=== PATIENT | female | born 1975 | race Caucasian/White ===

== ENCOUNTER 2017-01-14 12:49 | Inpatient (IN) | payer OTHER ==
[2017-01-14] VITALS (8 sets, daily range): BP systolic 114–122; BP diastolic 69–84; PULSE 93–120; RESP 15–28; O2SAT 93–97
[~2017-01-14] VITALS: Ht 152.4 cm; Wt 74.4 kg
--- NOTE | 2017-01-14 13:06 | ED.REPORT ---
HPI-Dyspnea / Wheezing Date of Service Jan 14, 2017 ED Provider: Orlin Vyas MD A 41 year old female with a history of RA, mitral valve prolapse, borderline pulmonary hypertension and diet-controlled lupus is referred to the ED from Urgent Care complaining of chest pain. The pt was recently diagnosed with pneumonia and has been taking azithromycin for five days. She has not significantly improved and is still experiencing a dry cough and shortness of breath. The pt noticed intermittent "stabbing" right-sided chest and back pain this morning that has continued since, prompting her to seek medical care today. She denies hemoptysis or recent periods of immobilization. The pt has an appointment with her PCP scheduled for tomorrow. Nursing Notes Stated Complaint: TROUBLE BREATHING Chief Complaint: Respiratory Distress Nursing Notes Reviewed: Yes Allergies: Coded Allergies: hydroxychloroquine (Verified Allergy, Severe, migraines, 01/14/17) sulindac (Verified Allergy, Severe, liver toxicity, 01/14/17) amoxicillin (Verified Allergy, Intermediate, rash,hives, 01/14/17) etanercept (Verified Allergy, Intermediate, IV site reaction, big red spot , 01/14/17) Scheduled Fexofenadine (Sarah Allergy) 180 Mg Tablet 180 MG PO QAM Norgestimate-Ethinyl Estradiol (Trinessa) 1 Each Tablet 1 TABLET PO QAM [place]-3/Dha/Epa/Fish Oil (Fish Oil 1,000 mg Softgel) 1 Each Capsule 1 CAPSULE PO QAM Scheduled PRN Albuterol HFA (Proair HFA) 8.5 Gm Hfa.aer.ad 2 PUFFS INHALATION Q4H PRN PRN For Shortness of Breath Cyclobenzaprine (Cyclobenzaprine) 10 Mg Tablet 5-10 MG PO Q8H PRN PRN Spasm Fluticasone Propionate (Fluticasone Propionate) 50 Mcg/Actuation [place].susp 1 SPRAY NS DAILY PRN PRN For Congestion General Time Seen by MD: 13:02 Chief Complaint Chest pain Hx Obtained From: Patient Arrived By: Walk-in Sudden in Onset?: No Symptom Duration: Since onset Recent Healthcare: Recent doctor visit Similar Sx Previous: No Past Medical History Past Medical History RA lupus, diet controlled mitral valve prolapse borderline pulmonary hypertension Past Surgical History none reported Smoking History Unknown if Ever Smoker Social History Other Social History: Good social support Ambulatory Status Independent Review of Systems Respiratory: Reports: Non-productive cough, Shortness of breath, Denies: Prod cough, bloody Cardiovascular: Reports: Chest pain Musculoskeletal: Reports: Back pain, Denies: Neck pain Skin: Denies Rash Complete sys rev & neg: except as marked. GI: Denies: Abdominal pain, Vomiting Physical Exam Initial Vital Signs Vital Signs (First) Date Time Temp Pulse Resp B/P Pulse Ox O2 Delivery O2 Flow Rate FiO2 01/14/17 12:52 37.2 120 18 114/76 95 Room Air Initial VS: Reviewed General/Constitutional: Awake, Alert Neck: Atraumatic, Supple, Full range of motion Respiratory / Chest: Breath sounds = bilat, No respiratory distress bibasilar crackles Cardiovascular: Heart rate NL, Regular rhythm, Heart sounds NL, No murmurs ENT: Atraumatic, Airway patent, Mucous membranes moist Abdomen: Atraumatic, Soft, Non-tender Back: Atraumatic, Full range of motion Lower Extremity / Pelvis / MS: Atraumatic, Full range of motion, No edema Skin: Atraumatic, Color NL, No rash, Warm, Dry Neurologic: Oriented X3, Speech NL, No motor deficits, No sensory deficits Head / Eyes: Atraumatic, Normocephalic, PERRL, EOMI Upper Extremity / MS: Atraumatic, Full range of motion Psychiatric: Affect NL, Mood NL Interpretation & Diagnostics Interpretation & Diagnostics: CT Angiogram Chest PE: IMPRESSION: 1. Right lower lobe pulmonary emboli. 2. Small hiatal hernia. 3. Bilateral atelectasis versus pneumonia. 4. Findings discussed with Dr. Jackson Rai on 01.14.17 at 1520 hrs. Dictated by: Brandon Mohr M.D. on 01/14/2017 at 15:19 Approved by: Brandon Mohr M.D. on 01/14/2017 at 15:22 Lab Results Interpretation Result Diagram: 01/15/17 0235 01/15/17 0235 Test 01/14/17 13:22 D-Dimer 3.88mg/L FEU (<0.50) Magnesium Level 2.1mg/dL (1.6-2.6) Total Bilirubin 0.6mg/dL (0.0-1.2) Aspartate Amino Transf (AST/SGOT) 21U/L (0-50) Alanine Aminotransferase (ALT/SGPT) 13U/L (0-32) Alkaline Phosphatase 78U/L (25-150) Pro-B-Type Natriuretic Peptide 115.7pg/mL (0-130) Total Protein 7.8g/dL (6.4-8.4) Albumin 2.4g/dL (3.4-5.0) Hold [place]ner Top Tube Received (Received) ECG Interpretation ECG Interpretation: sinus tachycardia with a rate of 103 T wave inversions in III and aVR no previous available for comparison Time: 13:17 Interpreted by: ED physician Re-Eval/Medical Decision Med Decision/Clinical Course 41-year-old female history of lupus reasoning with chest pain. CT angiogram confirms PE and pneumonia. PE risk factor lupus. Patient be admitted for IV antibiotics and heparin drip. Levaquin given. Source of Hx: Old records Re-Evaluation/Progress : Time of Eval: 15:39 Patient Status: Condition improved Re-Evaluation/Progress Note: Pt rechecked, who is stable. The diagnosis and plan for admission are discussed. The pt understands and agrees with the plan. All questions are addressed at this time. Consultation : Referral / Consult Name: Willem Leiva MD Consulted With: Hospitalist Call Returned at: 15:46 Lard Maker: Agrees with eval, Agrees with plan, Accepts admit Note: Spoke with Dr. Leiva, hospitalist, regarding pt's case. Dr. Leiva agrees with the evaluation and agrees to admit the pt. Counseled Regarding: Diagnosis, Lab results, Need for admission Discharge & Departure Impression: Primary Impression: Pneumonia Pneumonia type: due to unspecified organism Laterality: bilateral Lung location: unspecified part of lung Qualified Code: J18.9 - Pneumonia, unspecified organism Additional Impression: Pulmonary emboli Pulmonary embolism type: other Chronicity: acute Acute cor pulmonale presence: without acute cor pulmonale Qualified Code: I26.99 - Other pulmonary embolism without acute cor pulmonale Disposition: ADMITTED TO HOSPITAL Discharge Condition All VS Reviewed: Yes Condition: Stable Referrals: Damon Persaud DPM (PCP) Crit Care Except Billable Proc Time Spent: 75-104 minutes (90 minutes) Services Performed: Patient management by me, Time spent at bedside, Reviewing test results, Reviewing imaging, Discussing patient care, Documentation in record Scribe Attestation Portions of this note were transcribed by Flakito Melton. I, Dr. Vyas personally performed the history, physical exam and medical decision-making; I reviewed and confirmed the accuracy of the information in the transcribed note. copies to: Damon Persaud DPM, Ben M MD Jan 14, 2017 13:06 FLAKITO MELTON Jan 14, 2017 13:32 ECG Interpretation ECG Interpretation: sinus tachycardia with a rate of 103 T wave inversions in III and aVR no previous available for comparison Time: 13:17 Interpreted by: ED physician Re-Eval/Medical Decision Source of Hx: Old records Re-Evaluation/Progress : Time of Eval: 15:39 Patient Status: Condition improved Re-Evaluation/Progress Note: Pt rechecked, who is stable. The diagnosis and plan for admission are discussed. The pt understands and agrees with the plan. All questions are addressed at this time. Consultation : Referral / Consult Name: Willem Leiva MD Consulted With: Hospitalist Call Returned at: 15:46 Lard Maker: Agrees with eval, Agrees with plan, Accepts admit Note: Spoke with Dr. Leiva, hospitalist, regarding pt's case. Dr. Leiva agrees with the evaluation and agrees to admit the pt. Counseled Regarding: Diagnosis, Lab results, Need for admission Discharge & Departure Impression: Primary Impression: Pneumonia Pneumonia type: due to unspecified organism Laterality: bilateral Lung location: unspecified part of lung Qualified Code: J18.9 - Pneumonia, unspecified organism Additional Impression: Pulmonary emboli Pulmonary embolism type: other Chronicity: acute Acute cor pulmonale presence: without acute cor pulmonale Qualified Code: I26.99 - Other pulmonary embolism without acute cor pulmonale Disposition: ADMITTED TO HOSPITAL Discharge Condition All VS Reviewed: Yes Condition: Stable Referrals: Damon Persaud DPM (PCP) Crit Care Except Billable Proc Time Spent: 75-104 minutes (90 minutes) Services Performed: Patient management by me, Time spent at bedside, Reviewing test results, Reviewing imaging, Discussing patient care, Documentation in record Scribe Attestation Portions of this note were transcribed by Flakito Melton. I, Dr. Vyas personally performed the history, physical exam and medical decision-making; I reviewed and confirmed the accuracy of the information in the transcribed note. copies to: Damon Persaud DPM, Ben M MD Jan 14, 2017 13:06 FLAKITO MELTON Jan 14, 2017 13:32
[2017-01-14] MEDS ORDERED: 0.9% Sodium Chloride 1,000 ML IV ONE (13:10)
[2017-01-14 13:36] LABS: BASOPHILS % (AUTO) 0.3 % (0-3); EOSINOPHILS % (AUTO) 1.4 % (0-5); MONOCYTES % (AUTO) 13.1 % (4-12); NEUTROPHILS % (AUTO) 64.7 % (40-74); Platelet Count 278 bil/L (150-400)
[2017-01-14] MEDS ORDERED: levoFLOXacin Inj 750 MG in IV Premix 1 EACH IV ONE ×2 (13:45→15:25)
[2017-01-14 13:59] LABS: TROPONIN T < 0.010 ug/L (0.0-0.011)
[2017-01-14] MEDS ORDERED: Ondansetron 2 mg/mL 2 mL Inj ONE (14:54)
[2017-01-14] MEDS ORDERED: Ondansetron 2 mg/mL 2 mL Inj IVPUSH PRN ×2 (15:05→15:50)
--- NOTE | 2017-01-14 15:24 | DRSVH ---
PROCEDURE: CT ANGIO CHEST PULMONARY EMBOLISM ([id number]) INDICATIONS: chest pain elevated ddimer TECHNIQUE: After the administration of intravenous contrast, 2 mm thick sections acquired from the pulmonary api chuck to the posterior costophrenic angles. 3-dimensional maximum intensity projection (MIP) coronal a nd sagittal reformats were then acquired through the thorax. For radiation dose reduction, the follo wing was used: automated exposure control, adjustment of mA and/or kV according to patient size. COMPARISON: None. FINDINGS: Image quality: Excellent. Pulmonary arteries: Pulmonary arteries are normal in size. There are low density filling defects see n within the distal right main pulmonary artery, as well as the lobar, segmental, and subsegmental br anches of the right lower lobe pulmonary artery. Lungs and pleura: No pneumothorax. Small right pleural effusion. Moderate bibasilar airspace opacity, right greater than left. Scarring within the right upper lobe anteriorly. Central and peripheral air ways are patent. Mediastinum: Heart size is normal, without pericardial effusion. No mediastinal or hilar adenopathy . Thoracic aorta is normal in caliber and enhancement. Esophagus is normal in caliber. There is a s mall hiatal hernia. Bones and chest wall: No suspicious bony lesions. Ribs and thoracic spine appear intact throughout. Thyroid gland is within normal limits as visualized.. No axillary or supraclavicular adenopathy. Abdomen: Visualized upper abdominal solid organs appear normal in the early arterial phase of enhanc ement. IMPRESSION: 1. Right lower lobe pulmonary emboli. 2. Small hiatal hernia. 3. Bilateral atelectasis versus pneumonia. 4. Findings discussed with Dr. Jackson Rai on 01.14.17 at 1520 hrs. Dictated by: Brandon Mohr M.D. on 01/14/2017 at 15:19 Approved by: Brandon Mohr M.D. on 01/14/2017 at 15:22
[2017-01-14] MEDS ORDERED: Heparin 5,000 Unit/mL Inj IVPUSH ONE (15:25)
[2017-01-14] MEDS ORDERED: Heparin 25K Unit/500mL 0.45 NS 25,000 UNIT in IV Premix 1 EACH IV ONE (15:25)
[2017-01-14] MEDS ORDERED: Polyethylene Glycol (PEG) 17 Gm Powder PO PRN (15:50)
[2017-01-14] MEDS ORDERED: Heparin 25K Unit/500mL 0.45 NS 25,000 UNIT in IV Premix 1 EACH IV SCH (15:50)
[2017-01-14] MEDS ORDERED: Albuterol 2.5 mg/3 mL Inhalation Solution NEB PRN (15:50)
[2017-01-14] MEDS ORDERED: Alum-Mag Hydrox-Simeth 30 mL Suspension PO PRN (15:50)
[2017-01-14] MEDS ORDERED: NORG1TAB30 PO (15:53)
[2017-01-14] MEDS ORDERED: ALBU8.5H2 INHALATION (15:53)
[2017-01-14] MEDS ORDERED: OMEG-38 PO (15:53)
[2017-01-14] MEDS ORDERED: FEXO180T85 PO (15:53)
[2017-01-14] MEDS ORDERED: FLUT15.88 NS (15:53)
[2017-01-14] MEDS ORDERED: CYCL10TA9 PO (15:53)
[2017-01-14] MEDS ORDERED: Albuterol-Ipratropium 3 mL Inhalation Solution NEB SCH (16:00)
[2017-01-14] MEDS ORDERED: cefTRIAXone Inj 2,000 MG in Dextrose 5% Minibag Plus 50 ML IV SCH (16:55)
--- NOTE | 2017-01-14 17:09 | PCM.HPMED ---
Subjective Date of Service Jan 14, 2017 Primary Provider: Admitting Physician: Primary Care Physician: Esdras Clifford MD Attending Physician: Admit Status: From the Emergency Department, Full Admit, Admit to Yellow Team Chief Complaint: Shortness of breath and pleuritic chest pain. . History of Present Illness: Jo Lara is a 41-year-old female with a past medical history significant for mitral valve prolapse, borderline pulmonary hypertension, and diet-controlled mixed connective tissue disease who presented to [facility] emergency Department from the urgent care for shortness of breath and back pain 1 day. The patient was recently diagnosed with pneumonia and has been taking azithromycin for five days without significant improvement. She continues to experience a dry cough and shortness of breath. She has had associated headache, pleuritic chest pain, chills, fever, nausea, and vomiting. She experienced intermittent "stabbing" right-sided back pain prompting her to seek medical care today. She reports she has been immobile for 4-5 days due to her recent pneumonia. She denies vision changes, sore throat, chest pain, hemoptysis, dysuria, diarrhea, constipation, hematochezia, or melena. She has been on control pills since 17 years of age and is currently on TriNessa. She has no history of blood clots or family history of blood clots. She has no history of antiphospholipid syndrome. She has no other complaints. Vital signs in the ER: Temperature 37.2. Pulse 120. Respiratory rate 18. Blood pressure 114/76. Pulse ox 95% on room air. She received 1 L of NS, levofloxacin IV 750 mg 1, and was started on a PE heparin gtt in the ED. PCP is Dr. Esdras Clifford. . Review of Systems: A comprehensive review of systems was conducted with the patient and found to be negative except as above in the History of Present Illness. . Allergies Coded Allergies: hydroxychloroquine (Verified Allergy, Severe, migraines, 01/14/17) sulindac (Verified Allergy, Severe, liver toxicity, 01/14/17) amoxicillin (Verified Allergy, Intermediate, rash,hives, 01/14/17) etanercept (Verified Allergy, Intermediate, IV site reaction, big red spot , 01/14/17) Home Medications Albuterol 2 puffs every 4 hours as needed for shortness of breath Cyclobenzaprine 5-10 mg every 8 hours as needed for muscle spasm. Fexofenadine 180 mg daily. Fluticasone 1 spray intranasally daily as needed for allergies. TriNessa 1 daily. Fish oil 1000 mg daily. . PMH 1. Mixed connective tissue disorder, diet controlled. 2. "Borderline" pulmonary hypertension. 3. Mitral valve prolapse. 4. Seasonal allergies. . Surgical History 1. Cholecystectomy. . Family History Family history of heart disease on both sides of her family. Father who had an MO in his 50s and CABG 3 vessels who later of heart failure at 69 years old. Sister who is healthy. . Social History Hx Alcohol Use: Yes (social, 1-2 drinks 2x/month) Hx Substance Use: No Smoking Status: Never Smoker Additional Information The patient is x 2 years. She has no children. 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 . Exam Vital Signs Vital Sign - Last Date Time Temp Pulse Resp B/P Pulse Ox O2 Delivery O2 Flow Rate FiO2 01/14/17 13:53 95 27 121/69 96 01/14/17 12:52 37.2 Room Air Exam General: Young female lying in bed and in no acute distress, well-developed, well-nourished, appropriately interactive. HEENT: Normocephalic, atraumatic. External ears without defect. Pupils equal, round, and reactive to light. Anicteric sclerae, moist conjunctivae, and no lid lag. Oropharynx free of erythema and cobble stoning with moist mucosa. Neck: Supple with full range of motion. No jugular venous distension. No bruits. No lymphadenopathy or thyromegaly. Cardiovascular: Regular rhythm, tachycardic, without murmurs, rubs, or gallops appreciated Pulmonary: Bilateral lower lobe rales on auscultation, no wheeze. Normal respiratory effort with no use of accessory muscles. Abdomen: Soft, nontender, nondistended, bowel sounds present. No hepatosplenomegaly or masses appreciated. Extremities: No clubbing, cyanosis, or edema. No palpable cord or erythema of lower extremities. Skin: Normal temperature, turgor, and texture; no rash, ulcers, or subcutaneous nodules appreciated. Neurological: Cranial nerves grossly intact. Normal muscle strength, tone, and bulk. Reflexes, coordination, and sensory function within normal limits. No known gait impairment. Psychiatric: Normal mood and affect. Alert and oriented to person, place, and time. . Lab and Diagnostics Labs Item Value Date Time D-Dimer 3.88 mg/L FEU H 01/14/17 1322 Item Value Date Time Calcium Level 8.1 mg/dL L 01/14/17 1322 Total Bilirubin 0.6 mg/dL 01/14/17 1322 Aspartate Amino Transf (AST/SGOT) 21 U/L 01/14/17 1322 Alanine Aminotransferase (ALT/SGPT) 13 U/L 01/14/17 1322 Alkaline Phosphatase 78 U/L 01/14/17 1322 Troponin T < 0.010 ug/L 01/14/17 1322 Pro-B-Type Natriuretic Peptide 115.7 pg/mL 01/14/17 1322 Total Protein 7.8 g/dL 01/14/17 1322 Albumin 2.4 g/dL L 01/14/17 132 Result Diagram: 01/14/17 1322 01/14/17 132 X-Rays, CTs and MRIs CT ANGIO CHEST PULMONARY EMBOLISM IMPRESSION: 1. Right lower lobe pulmonary emboli. 2. Small hiatal hernia. 3. Bilateral atelectasis versus pneumonia. 4. Findings discussed with Dr. Jackson Rai on 01.14.17 at 1520 hrs. Dictated by: Brandon Mohr M.D. on 01/14/2017 at 15:19 . 12-lead ECG EKG: Sinus rhythm, tachycardic heart rate 103, normal axis, normal intervals, normal R-wave progression, T-wave inversion in lead III, no pathological Q waves or acute ischemic changes such as ST elevation or depression. Assessment & Plan Jo Lara is a 41-year-old female with a past medical history significant for mitral valve prolapse, borderline pulmonary hypertension, and diet-controlled mixed connective tissue disease who presented to [facility] emergency Department from the urgent care for shortness of breath and back pain 1 day. 1. Acute right lower lobe pulmonary emboli, present on admission. Active. - The patient presented with shortness of breath, pleuritic chest pain, and back pain 1 day. Afebrile and without leukocytosis. - D-dimer elevated at 3.88 which prompted CTA which demonstrated right lower lobe pulmonary emboli, as above. - Pulmonary emboli was provoked as patient was immobile, is on control, and has recent community-acquired pneumonia which has been shown to have a propensity for PE. - No family history of blood clots, previous history of blood clots, or antiphospholipid syndrome. - Continue PE heparin gtt. 2. Acute bilateral community-acquired pneumonia, present on admission. Active. - The patient failed azithromycin. - CTA demonstrated bilateral lower lobe pneumonia, as above. - Ordered complete pneumonia workup including: blood cultures 2, sputum Gram stain and culture if obtainable, respiratory viral PCR, and strep pneumoniae and legionella urine antigens. - Ordered MRSA screen. - Tylenol as needed for fever and pain. - Started IV fluid hydration with NS 100 mL/hr. - Ordered duo nebs every 4 hours as needed while awake and albuterol nebs every 2 hours as needed for shortness of breath. - Continue levofloxacin IV 750 mg daily. Chronic problems: 3. Seasonal allergies, present on admission. Stable. - Continue fexofenadine (or equivalent) 180 mg daily and fluticasone 1 spray intranasally daily as needed for allergies. 4. Mixed connective tissue disorder, present on admission. Stable. - Continue diet modification at patient's discretion. - Continue cyclobenzaprine 5 mg every 8 hours as needed for muscle spasm. 5. Borderline pulmonary hypertension, present on admission. Presumed stable. - The patient reports she is seen by a custom framing specialist in [place] Dr. Dodd who is monitoring her pulmonary hypertension without treatment thus far. PRN antiemetics: Zofran and Maalox. PRN bowel regimen: Senna and MiraLAX. PRN analgesics: Tylenol. Patient is admitted under inpatient status with expected length of stay greater than 2 midnights due to severity of presenting symptoms, risk of adverse event, and complexity of treatment plan. . Pain Evaluation: Adequate Pain Control VTE Prophylaxis: Other (PE heparin gtt) Resuscitation Status: CPR: Attempt Resuscitation Time spent 50 minutes Attending Statement The patient was seen and examined together with on January 14 and I agree with the history, exam findings, and plan as outlined in the note above. I did participate in all aspects of the services provided today, including documentation and the plan of care. The patient will be admitted and treated for pulmonary embolism with a heparin drip as well as community-acquired pneumonia with antibiotics. We will follow her clinically. At this point she shows no evidence of hemodynamic instability. We did clarify that she wants to be full resuscitation but that she would not want to be on a ventilator long-term if she had no hopes of improvement. copies to: Esdras Clifford MD; Oc Dodd MD, [place] M DO Jan 14, 2017 15:54 Willem Leiva MD Jan 14, 2017 18:43
[2017-01-14] MEDS ORDERED: FLUTICASONE PROPIONATE NS PRN (17:15)
[2017-01-14] MEDS ORDERED: Albuterol-Ipratropium 3 mL Inhalation Solution NEB PRN (17:15)
[2017-01-14] MEDS ORDERED: Fluticasone 0.05% 15 Spray/2 Gm 16 Gm Nasal Spray NASAL PRN (17:20)
[2017-01-14] MEDS: 0.9% Sodium Chloride 1,000 ML IV SCH (18:44)
--- NOTE | 2017-01-14 18:46 | NUR ---
Admit Pt arrived from the ED around 1630 with family support at the bedside. Pt A&O, answers questions appropriately. Ambulates independently. No c/o pain or discomfort at this time but states that she has been having lower back pain earlier today. NS running, heparin drip running. Pt ate dinner and voided in the toilet. Last BM yesterday.
[2017-01-14] MEDS: Heparin 5,000 Unit/mL Inj IVPUSH PRN (22:36)
[2017-01-15 03:10] LABS: BASOPHILS % (AUTO) 0.5 % (0-3); EOSINOPHILS % (AUTO) 1.8 % (0-5); MONOCYTES % (AUTO) 11.8 % (4-12); Mean Corpuscular Hemoglobin 29.7 pg (27.0-35.0); Mean Corpuscular Volume 88.2 fL (81-100); NEUTROPHILS % (AUTO) 60.3 % (40-74); Platelet Count 275 bil/L (150-400)
[2017-01-15 03:44] VITALS: BP 117/77; PULSE 109; RESP 16; O2SAT 96
[2017-01-15] MEDS: 0.9% Sodium Chloride 1,000 ML IV SCH ×2 (04:35→12:31)
[2017-01-15] MEDS: Heparin 5,000 Unit/mL Inj IVPUSH PRN (05:03)
--- NOTE | 2017-01-15 06:04 | NUR ---
Chest Pain Pt initially denied pain at HS, reporting occasional "twinges" to back, but denied intervention. At approx. 2340, pt requested some pain relief due to back discomfort - 5mg Flexeril administered per pt request. At approx. 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 BP 139/86; tele ST 130s; SpO2 93%; 1L NC applied, paged, and STAT EKG ordered. Upon reassessment, patient stated that the chest pain had entirely subsided after administration of oxygen, but during consultation with MD, the chest pain began to return at approx. 4/10. Morphine IVP ordered and administered per MD instructions, beginning with 0.5mg IVP; O2 increased to 2L NC. Pt reported pain had decreased from 4/10 to 3/10; additional 0.5mg IVP administered. Upon reassessment, patient stated pain increased back to 8/10. paged, additional 1mg IVP of morphine given. Pt reported pain significantly decreased and eventually subsided entirely. Currently on 2L NC with SPO2 97-98%. VSS. Tele ST 90s-100s. Heparin gtt infusing at 22units/kg/hr.
[2017-01-15] MEDS ORDERED: levoFLOXacin Inj 750 MG in IV Premix 1 EACH IV SCH (08:30)
--- NOTE | 2017-01-15 09:03 | NUR ---
Social Work: Initial Assessment D: Per EMR review, pt is a 41 year old female admitted for PE, Pneumonia. Patient is [facility] Insurance with no supplement, LTC or VA benefits according pt. PCP is Esdras Clifford MD. NOK is Winston Powell, spouse, . Advanced directives not completed- pt declined info. Readmit score is low, 0/8. WILDLIFE FORENSIC GENETICIST met with the patient at bedside. Social work/dcp role explained, contact information and discharge planning checklist provided. See initial assessment. Patient lives with her spouse in [place] in a single story home with 3 steps to enter. Patient is I with all self-care and ADLs, uses no DME and continues to drive. 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 No history of HH or Skilled rehab. Patient anticipates discharge home with no needs but is receptive to d/c planning if needs arise. Patient's spouse will transport. A: Pt who is I at baseline. P: Anticipate patient to discharge home via POV once medically stable; WILDLIFE FORENSIC GENETICIST to continue to follow to assess for unmet discharge needs. ALISON Rees Addendum: 01/15/17 at 0907 by NORMA LITTLE Amended: Links added.
[2017-01-15 09:15] VITALS: BP 116/73; PULSE 104; RESP 18; O2SAT 97
[2017-01-15 10:26] VITALS: PULSE 109
--- NOTE | 2017-01-15 12:43 | PCM.PNMED ---
Subjective Date of Service Jan 15, 2017 Subjective She is breathing okay. She is in a lot of pleuritic chest pain on the right side which is making her uncomfortable and making her splint. No nausea. She denies any diarrhea. She is an okay appetite. No fevers or chills. A nonproductive cough. No overnight events noted Exam Vital Signs Vital Sign - Last Date Time Temp Pulse Resp B/P Pulse Ox O2 Delivery O2 Flow Rate FiO2 01/15/17 10:26 109 01/15/17 09:15 36.8 18 116/73 97 Nasal Cannula 2.00 Intake and Output 01/14/17 01/14/17 01/15/17 Cumulative From/Thru 15:00 23:00 07:00 01/14/17 12:52 - 01/15/17 06:44 Intake Total 1000 ml 0 ml 1771 ml 2771 ml Output Total 200 ml 800 ml 1000 ml Balance 1000 ml -200 ml 971 ml 1771 ml Intake Oral 0 ml 200 ml 200 ml IV Total 1000 ml 1571 ml 2571 ml Output Urine Total 200 ml 800 ml 1000 ml Exam Alert and oriented -3, no distress. Fluent speech Anicteric sclera. Lungs are clear with normal rate and effort Heart is regular without murmur gallop or rub Abdomen soft nontender, flat Extremities are free of edema. Skin is free of rash or lesions. IVs and Medications Medications Reviewed: Medications were reviewed in detail Lab and Diagnostics Result Diagram: 01/15/17 0235 01/15/17 023 X-Rays, CTs and MRIs CT ANGIO CHEST PULMONARY EMBOLISM IMPRESSION: 1. Right lower lobe pulmonary emboli. 2. Small hiatal hernia. 3. Bilateral atelectasis versus pneumonia. 4. Findings discussed with Dr. Jackson Rai on 01.14.17 at 1520 hrs. Dictated by: Brandon Mohr M.D. on 01/14/2017 at 15:19 . 12-lead ECG EKG: Sinus rhythm, tachycardic heart rate 103, normal axis, normal intervals, normal R-wave progression, T-wave inversion in lead III, no pathological Q waves or acute ischemic changes such as ST elevation or depression. Assessment & Plan Jo Lara is a 41-year-old female with a past medical history significant for mitral valve prolapse, borderline pulmonary hypertension, and diet-controlled mixed connective tissue disease who presented to [facility] emergency Department from the urgent care for shortness of breath and back pain 1 day. 1. Acute right lower lobe pulmonary emboli, present on admission. Active. - The patient presented with shortness of breath, pleuritic chest pain, and back pain 1 day. Afebrile and without leukocytosis. - D-dimer elevated at 3.88 which prompted CTA which demonstrated right lower lobe pulmonary emboli, as above. - Pulmonary emboli was provoked as patient was immobile, is on control, and has recent community-acquired pneumonia which has been shown to have a propensity for PE. - No family history of blood clots, previous history of blood clots, or antiphospholipid syndrome. - Continue PE heparin gtt. Anticipated discharge on January 16 likely with Eliquis PO BID. Have encouraged her to stop her oral contraceptive pill and follow up with her doctor regarding possible IUD or other alternative. 2. Possible ccute bilateral community-acquired pneumonia, present on admission. Active. - The patient failed azithromycin. - CTA demonstrated bilateral lower lobe pneumonia, as above. - Ordered complete pneumonia workup including: blood cultures 2, sputum Gram stain and culture if obtainable, respiratory viral PCR, and strep pneumoniae and legionella urine antigens. - Ordered MRSA screen. - Tylenol as needed for fever and pain. - Started IV fluid hydration with NS 100 mL/hr. - Ordered duo nebs every 4 hours as needed while awake and albuterol nebs every 2 hours as needed for shortness of breath. - Stop levofloxacin IV 750 mg daily. Start doxycycline by mouth. She is oriented 5 days of azithromycin. 3. Seasonal allergies, present on admission. Stable. - Continue fexofenadine (or equivalent) 180 mg daily and fluticasone 1 spray intranasally daily as needed for allergies. 4. Mixed connective tissue disorder, present on admission. Stable. - Continue diet modification at patient's discretion. - Continue cyclobenzaprine 5 mg every 8 hours as needed for muscle spasm. 5. Borderline pulmonary hypertension, present on admission. Presumed stable. - The patient reports she is seen by a regular senior care provider in [place] Dr. Dodd who is monitoring her pulmonary hypertension without treatment thus far. PRN antiemetics: Zofran and Maalox. PRN bowel regimen: Senna and MiraLAX. PRN analgesics: Tylenol. Patient is admitted under inpatient status with expected length of stay greater than 2 midnights due to severity of presenting symptoms, risk of adverse event, and complexity of treatment plan. Anticipated discharge home on January 16 with possible oral antibiotics and anticoagulate Eliquis . VTE Prophylaxis: Other (PE heparin gtt) Resuscitation Status: CPR: Attempt Resuscitation Willem Leiva MD Jan 15, 2017 12:43
[2017-01-15 13:00] VITALS: BP 113/79; PULSE 108; RESP 20; O2SAT 95
--- NOTE | 2017-01-15 19:11 | NUR ---
Pain/HR C/O lower back pain in the morning. Pt stated a 4/10 but was near tears. Morphine and flexeril given with good results. Zofran also given in conjunction with IV ABX which pt was concerned would make her nauseous. Pain was resolved until a bit later in the day when pt was laid flat to be boosted in the bed. Appeared to cause back spasms but were resolved quickly. No further pain medications requested. HR up into the 140s with exertion. Quickly recovers.
[2017-01-15 19:55] VITALS: BP 118/74; PULSE 106; RESP 20; O2SAT 93
[2017-01-15 23:29] VITALS: PULSE 108
[2017-01-16] VITALS (7 sets, daily range): BP systolic 113–125; BP diastolic 81–84; PULSE 74–113; RESP 16–18; O2SAT 94–97
--- NOTE | 2017-01-16 03:16 | NUR ---
PAIN Patient continues to have intermittent sharp, moderate to severe pain with activity and deep breathing. Small dose of morphine given with flexaril, which has helped patient to rest and claim no pain. PTT within goal at this time and will repat later this morning.
[2017-01-16 08:23] LABS: APPEARANCE,URINE HAZY (CLEAR,HAZY); COLOR,URINE STRAW (YELLOW)
[2017-01-16 08:24] LABS: OCCULT BLOOD,URINE NEGATIVE (NEGATIVE); UROBILINOGEN,URINE NORMAL (NORMAL)
[2017-01-16] MEDS ORDERED: APIX5TAB PO (11:49)
--- NOTE | 2017-01-16 11:50 | DRSVH ---
[facility] [address] [place] [address] Echocardiogram Report Name: JANEL BLACKMON SStudy Date: Height: 60 in Hospital Exam Location: [facility] Weight: 164 lb Gender: Female BSA: 1.7 m2 : 1975 Age: 41 yrs BP: 116/84 mm Hg Reason For Study: Shortness of breath, PE Ordering Physician: GUERDA [facility] Performed By: Shanell Alexander Referring Physician: Brandy Grover Interpretation Summary The left ventricle is normal in size. The ejection fraction is estimated to be 65-70%. The right ventricle is grossly normal size. The right ventricular systolic function is normal. No significant valvular pathology seen. The patient was in sinus tachycardia with heart rates between 104-115 bpm during the exam. Procedure: A two-dimensional transthoracic echocardiogram with color flow and Doppler was performed. The study quality was technically adequate. There is no prior echocardiogram noted for this patient. The patient was unable to lay supine due to shortness of breath. The subcostal views were difficult to obtain and are suboptimal in quality. The patient was in sinus tachycardia with heart rates between 104-115 bpm during the exam. Left Ventricle: The left ventricle is normal in size. Left ventricular wall thickness is mildly increased. Proximal septal thickening is noted. There is no echo evidence for significant left ventricular outflow tract obstruction. There is no thrombus. The ejection fraction is estimated to be 65-70%. There are no focal wall motion abnormalities. Diastolic function could not be accurately assessed due to tachycardia. Right Ventricle: The right ventricle is grossly normal size. The right ventricular systolic function is normal. Atria: The left atrial size is normal. Right atrial size is normal. The interatrial septum is intact with no evidence for an atrial septal defect. Mitral Valve: The mitral valve leaflets appear mildly thickened, but open well. There is mild mitral annular calcification. There is trace mitral regurgitation. Aortic Valve: The aortic valve is trileaflet. The aortic valve opens well. The aortic valve is slightly calcified. There is no aortic valve stenosis. No aortic regurgitation is present. Tricuspid Valve: The tricuspid valve is not well visualized, but is grossly normal. There is trace tricuspid regurgitation. The right ventricular systolic pressure is estimated at 22 mmHg assuming a right atrial pressure of 3 mm Hg. Pulmonic Valve: The pulmonic valve is not well seen, but is grossly normal. There is trace pulmonic regurgitation. Great Vessels: The aortic root is normal size. The ascending aorta is normal in size. The IVC is of normal diameter and collapses greater than 50% with a sniff. This suggests a low right atrial pressure of 3 mm Hg. Pericardium/ Pleura There is no pericardial effusion. There is no pleural effusion. MMode/2D Measurements & Calculations LVIDd: 3.8 cm LVIDs: 2.3 cm LA A2 area: 16.2 cm FS: 40.8 % LA A4 area: 15.0 cm IVSd: 1.2 cm LA length (vol): 4.7 cm LVPWd: 1.3 cm LA vol: 43.9 ml LA vol index: 25.6 ml/m IVC diam: 1.5 cm RA long axis: 4.0 cm LVOT diam: 2.0 cm RA area: 9.4 cm asc Aorta Diam: 2.9 cm RA vol: 18.6 ml RA : 10.8 ml/m2 LV topete. diameter/BSA (cm/m^2): 2.2 LV sys. diameter/BSA (cm/m^2): 1.3 TAPSE: 2.6 cm Doppler Measurements & Calculations Ao V2 max: 160.7 cm/sec MV E max rios: 76.0 cm/sec Ao max P.3 mmHg MV A max rios: 75.4 cm/sec Ao mean P.3 mmHg LVOT Max Rios: 131.0 cm/sec LONDON(I,D): 2.4 cm sev ratio: 0.74 MV E/A: 1.0 TR max rios: 215.8 cm/sec TR max P.7 mmHg PA V2 max: 78.9 cm/sec PA mean P.6 mmHg Ao V2 mean: 118.9 cm/sec LV V1 max P.9 mmHg Ao V2 VTI: 26.8 cm LV V1 VTI: 19.7 cm LONDON(V,D): 2.6 cm2 PA V2 mean: 59.1 cm/sec LONDON indexed to BSA (cm^2/m^2): 1.4 PA pr(Accel): 37.4 mmHg Reading Physician:AM
[2017-01-16] MEDS ORDERED: AZIT500T5 PO (11:51)
[2017-01-16] MEDS ORDERED: DOXY100T2 PO (11:51)
--- NOTE | 2017-01-16 11:56 | PCM.DIMED ---
Discharge Instructions Date of Service Jan 16, 2017 Dates of Hospitalization Jan 14, 2017 at 16:29 Discharge Diagnosis Discharge Diagnosis 1. Acute right lower lobe pulmonary emboli, present on admission. Active. 2. Possible acute bilateral community-acquired pneumonia, present on admission. Active. 3. Seasonal allergies, present on admission. Stable. 4. Mixed connective tissue disorder, present on admission. Stable. 5. Borderline pulmonary hypertension, present on admission. Presumed stable. Medication Instructions Additional med instructions We have Started you on a blood thinning medication called Eliquis, you should be on this medication for at least 6 months. We will also put you on 2 antibiotics that you should continue for the next 3 days starting tomorrow. Diet Discharge Diet: Heart Healthy Activity Discharge Activity: No restrictions Call your provider Call your provider for: Fever or Chills, Shortness of breath, Bleeding, Chest pain, Vomitting, Excessive diarrhea, Weakness (unilateral) Patient Instructions Patient Instructions Please avoid any situations in which you may fall from any height above the ground such as using ladders, working on the roof, or otherwise putting yourself in precarious situations as any kind of fall or trauma will be more likely to cause bleeding. If you have any kind of car accident or other trauma please seek medical evaluation. Follow-up plan Please follow up with your primary care provider, we have made you an appointment for SundayJanuary 19. Follow-up Provider: Vikash Wood MD Follow-up with PCP in: 1 week (SundayJan 19, appointment made) Damon De La Torre DO Jan 16, 2017 11:56
--- NOTE | 2017-01-16 14:10 | NUR ---
Social Work: Discharge/Multidisciplinary Rounds D: Pt discussed multidisciplinary rounds. Patient is medically stable for discharge home. Capacity for self-care addressed; no concerns or d/c needs identified. Provider has given SENIOR RESEARCH EXECUTIVE a prescription for Eliquis to run with patient's preferred pharmacy. SENIOR RESEARCH EXECUTIVE faxed to [facility] in [place] who states pt's co-pay is $30. SENIOR RESEARCH EXECUTIVE met with the patient at bedside to confirm discharge plan and reassess for unmet needs. Patient notified of $30 copay which she states she can pay. She has no concerns about discharge and continues to be I with ADLS and self-care during admission. A: Pt who is I at baseline. P: Pt to discharge home via POV and no sw needs. ALISON Rees
--- NOTE | 2017-01-16 14:34 | NUR ---
Discharge Pt provided education on diagnosis, new meds, and discharge care. Pt demonstrated understanding of teaching. Pt provided with educational packet and signed last page. Pt left with all personal belongings. Tele leads removed. IVs removed. Pt escorted down to vehicle by staff member
--- NOTE | 2017-01-16 17:28 | PCM.DC.MED ---
Discharge Summary Date of Service Jan 16, 2017 Dates of Hospitalization Date of Hospital Admission Jan 14, 2017 at 16:29 Date of Discharge: Jan 16, 2017 Providers: Admitting Physician: Willem Leiva MD Primary Care Physician: Esdras Clifford MD Attending Physician: Ariel Amaya Diagnosis at Time of Discharge Diagnosis at Time of Discharge 1. Acute right lower lobe pulmonary emboli, present on admission. Active. 2. Possible acute bilateral community-acquired pneumonia, present on admission. Active. 3. Seasonal allergies, present on admission. Stable. 4. Mixed connective tissue disorder, present on admission. Stable. 5. Borderline pulmonary hypertension, present on admission. Presumed stable. Procedures XRay, CTs & MRIs CT ANGIO CHEST PULMONARY EMBOLISM IMPRESSION: 1. Right lower lobe pulmonary emboli. 2. Small hiatal hernia. 3. Bilateral atelectasis versus pneumonia. 4. Findings discussed with Dr. Jackson Rai on 01.14.17 at 1520 hrs. Dictated by: Brandon Mohr M.D. on 01/14/2017 at 15:19 . ECG 12 Lead EKG: Sinus rhythm, tachycardic heart rate 103, normal axis, normal intervals, normal R-wave progression, T-wave inversion in lead III, no pathological Q waves or acute ischemic changes such as ST elevation or depression. Brief History Taken from History of Present Illness composed by Dr. Fournier on 01/14/17 Jo Lara is a 41-year-old female with a past medical history significant for mitral valve prolapse, borderline pulmonary hypertension, and diet-controlled mixed connective tissue disease who presented to [facility] emergency Department from the urgent care for shortness of breath and back pain 1 day. The patient was recently diagnosed with pneumonia and has been taking azithromycin for five days without significant improvement. She continues to experience a dry cough and shortness of breath. She has had associated headache, pleuritic chest pain, chills, fever, nausea, and vomiting. She experienced intermittent "stabbing" right-sided back pain prompting her to seek medical care today. She reports she has been immobile for 4-5 days due to her recent pneumonia. She denies vision changes, sore throat, chest pain, hemoptysis, dysuria, diarrhea, constipation, hematochezia, or melena. She has been on control pills since 17 years of age and is currently on TriNessa. She has no history of blood clots or family history of blood clots. She has no history of antiphospholipid syndrome. She has no other complaints. Vital signs in the ER: Temperature 37.2. Pulse 120. Respiratory rate 18. Blood pressure 114/76. Pulse ox 95% on room air. She received 1 L of NS, levofloxacin IV 750 mg 1, and was started on a PE heparin gtt in the ED. PCP is Dr. Esdras Clifford. . Hospital Course Jo Lara is a 41-year-old female with a past medical history significant for mitral valve prolapse, borderline pulmonary hypertension, and diet-controlled mixed connective tissue disease who presented to [facility] emergency Department from the urgent care for shortness of breath and back pain 1 day. The patient was placed on Heparin Drip and treated for suspected community acquired pneumonia, it is unclear to what degree her pulmonary symptoms were entirely related to her PE, or whether there was some component of infection. The patient was discharged with PO antibiotics to complete the full recommended course of therapy. Acute right lower lobe pulmonary emboli - The patient presented with shortness of breath, pleuritic chest pain, and back pain 1 day. Afebrile and without leukocytosis. - D-dimer elevated at 3.88 which prompted CTA which demonstrated right lower lobe pulmonary emboli - Pulmonary emboli was provoked as patient was immobile, is on control, and has recent community-acquired pneumonia which has been shown to have a propensity for PE. - No family history of blood clots, previous history of blood clots, or antiphospholipid syndrome. - Patient discharged on Eliquis for continued anticoagulation, recommended duration at least 6 months; at which time she can be reassessed - Patient was encouraged to discuss IUD, or other control method that is less prothrombotic Possible ccute bilateral community-acquired pneumonia - CTA demonstrated bilateral lower lobe pneumonia, as above. - Ordered complete pneumonia workup including: blood cultures 2, sputum Gram stain and culture if obtainable, respiratory viral PCR, and strep pneumoniae and legionella urine antigens. - Ordered MRSA screen. - Tylenol as needed for fever and pain. - Started IV fluid hydration with NS 100 mL/hr. - Ordered duo nebs every 4 hours as needed while awake and albuterol nebs every 2 hours as needed for shortness of breath. - DC to continue 3 days of Doxycycline and Azithromycin Seasonal allergies, present on admission. Stable. - Continued fexofenadine (or equivalent) 180 mg daily and fluticasone 1 spray intranasally daily as needed for allergies. Mixed connective tissue disorder, present on admission. Stable. - Continued diet modification at patient's discretion. - Continued cyclobenzaprine 5 mg every 8 hours as needed for muscle spasm. Borderline pulmonary hypertension, present on admission. Presumed stable. - The patient reports she is seen by a instructor of education in [place] Dr. Dodd who is monitoring her pulmonary hypertension without treatment thus far. Exam Vital Signs (Last) Date Time Temp Pulse Resp B/P Pulse Ox O2 Delivery O2 Flow Rate FiO2 01/16/17 12:07 113 16 97 Nasal Cannula 1.00 01/16/17 11:23 37.3 Exam Gen: A/O x3 pleasant cooperative woman in NAD Neck: Supple, non tender, no JVD HEENT: PERRL, EOMI, no scleral icterus, no conjunctival pallor CV: RRR, no murmurs rubs or gallops Resp: Lungs CTA BL, no wheezing rales or rhonchi Abd: no rebound guarding or tenderness Extr: No clubbing cyanosis or edema Neuro: CN 2-12 grossly intact, no focal neurologic deficit Psych: Pleasant and appropriate mood and affect. Test 01/14/17 13:22 01/15/17 02:35 01/15/17 02:37 01/16/17 06:53 D-Dimer 3.88mg/L FEU (<0.50) Hemoglobin A1c 5.7% (4.8-5.6) Magnesium Level 2.1mg/dL (1.6-2.6) Total Bilirubin 0.6mg/dL (0.0-1.2) Aspartate Amino Transf (AST/SGOT) 21U/L (0-50) Alanine Aminotransferase (ALT/SGPT) 13U/L (0-32) Alkaline Phosphatase 78U/L (25-150) Pro-B-Type Natriuretic Peptide 115.7pg/mL (0-130) Total Protein 7.8g/dL (6.4-8.4) Albumin 2.4g/dL (3.4-5.0) Hold Garner Top Tube Received (Received) White Blood Count 8.1th/mm3 (3.8-10.1) Red Blood Count 3.91mil/mm3 (3.90-5.20) Hemoglobin 11.6g/dL (12.0-15.6) Hematocrit 34.5% (35.0-46.0) Mean Corpuscular Volume 88.2fL (81-100) Mean Corpuscular Hemoglobin 29.7pg (27.0-35.0) Mean Corpuscular Hemoglobin Concent 33.6% (32.0-37.0) Red Cell Distribution Width 12.4% (12.3-15.4) Platelet Count 275bil/L (150-400) Neutrophils (%) (Auto) 60.3% (40-74) Lymphocytes (%) (Auto) 23.6% (14-46) Monocytes (%) (Auto) 11.8% (4-12) Eosinophils (%) (Auto) 1.8% (0-5) Basophils (%) (Auto) 0.5% (0-3) Sodium Level 135mEq/L (134-144) Potassium Level 4.0mEq/L (3.5-5.2) Chloride Level 101mEq/L (97-108) Carbon Dioxide Level 17mmol/L (18-29) Blood Urea Nitrogen 6mg/dL (6-24) Creatinine 0.56mg/dL (0.57-1.00) Estimat Glomerular Filtration Rate 172mL/min (>59) Glucose Level 91mg/dL (60-99) Calcium Level 7.4mg/dL (8.5-10.1) Procalcitonin 0.08ng/mL (0.00-0.08) Troponin T 0.010ug/L (0.0-0.011) Activated Partial Thromboplast Time 70.9sec (22.8-33.0) Test 01/16/17 07:50 01/16/17 08:02 Urine Legionella pneumophilia Ag Negative (Negative) Urine Color Straw (YELLOW) Urine Appearance Hazy (CLEAR,HAZY) Urine pH 6.0 (5.0-8.0) Urine Specific [place] 1.010 (1.003-1.035) Urine Protein Negativemg/dL (NEG,TRACE) Urine Glucose (UA) Negativemg/dL (NEGATIVE) Urine Ketones Tracemg/dL (NEGATIVE) Urine Occult Blood Negative (NEGATIVE) Urine Nitrite Negative (NEGATIVE) Urine Bilirubin Negative (NEGATIVE) Urine Urobilinogen Normalmg/dL (NORMAL) Urine Leukocyte Esterase Negative (NEGATIVE) Urine RBC 0-2/hpf (0-2) Urine WBC 6-10/hpf (0-5) Urine Epithelial Cells Moderate/hpf (NONE-MOD) Urine Crystals None seen (NONE SEEN) Urine Bacteria Few/hpf (NONE-FEW) Urine Hyaline Casts Occasional/lpf (NONE) Urine Granular Casts None seen (NONE SEEN) Urine Waxy Casts None seen (NONE SEEN) Urine Red Blood Cell Casts None seen (NONE SEEN) Urine White Blood Cell Casts None seen (NONE SEEN) Urine Mucus None seen (None Seen) Urine Trichomonas None seen (NONE SEEN) Urine Yeast None (NONE SEEN) Urinalysis Comment None Urine Culture Reflexed Indicated Discharge Medications Discharge Medications Apixaban (Eliquis) 5 Mg Tablet 5 MG PO BID Prescribed by: LEEANN DE LA TORRE, Azithromycin (Azithromycin) 500 Mg Tablet 500 MG PO DAILY Prescribed by: LEEANN DE LA OTRRE DO Doxycycline Hyclate (Doxycycline Hyclate) 100 Mg Tablet 100 MG PO BID Prescribed by: LEEANN DE LA TORRE DO Fexofenadine (Sarah Allergy) 180 Mg Tablet 180 MG PO QAM (Reported) [place]-3/Dha/Epa/Fish Oil (Fish Oil 1,000 mg Softgel) 1 Each Capsule 1 CAPSULE PO QAM (Reported) As needed Albuterol HFA (Proair HFA) 8.5 Gm Hfa.aer.ad 2 PUFFS INHALATION Q4H PRN PRN For Shortness of Breath (Reported) Cyclobenzaprine (Cyclobenzaprine) 10 Mg Tablet 5-10 MG PO Q8H PRN PRN Spasm ( Reported) Fluticasone Propionate (Fluticasone Propionate) 50 Mcg/Actuation [place].susp 1 SPRAY NS DAILY PRN PRN For Congestion (Reported) Additional med instructions We have Started you on a blood thinning medication called Eliquis, you should be on this medication for at least 6 months. We will also put you on 2 antibiotics that you should continue for the next 3 days starting tomorrow. Followup Plan Disposition: Home Follow-up plan Please follow up with your primary care provider, we have made you an appointment for SundayJanuary 19. Discharge Diet: Heart Healthy Discharge Activity: No restrictions Patient Instructions Please avoid any situations in which you may fall from any height above the ground such as using ladders, working on the roof, or otherwise putting yourself in precarious situations as any kind of fall or trauma will be more likely to cause bleeding. If you have any kind of car accident or other trauma please seek medical evaluation. Follow-up Provider: Vikash Wood MD Follow-up with PCP in: 1 week (SundayJan 19, appointment made) Time spent Time spent planning and coordinating discharge greater than 35 minutes. Attending Statement The patient was seen and examined together with Dr. De La Torre on 01/16/17 and I agree with the history, exam and plan as outlined in the note above. copies to: Vikash Wood MD, David E DO Jan 16, 2017 17:28 Ariel Amaya Jan 16, 2017 18:45
== END 2017-01-16 14:39 | disposition home or self-care (01) | DRG 175 ==
LOC: SED 12:49 → PCC 16:29
PROVIDERS: ADMIT Hospitalist; ATTEND Internal Medicine
DX: I26.99 Other pulmonary embolism without acute cor pulmonale (principal); J18.9 Pneumonia, unspecified organism; J30.2 Other seasonal allergic rhinitis; L94.9 Localized connective tissue disorder, unspecified